=== PATIENT | female | born 1985 | race Caucasian/White ===

== ENCOUNTER 2020-04-14 17:21 | Emergency (ER) | payer MEDICAID ==
[~2020-04-14] VITALS: Ht 154.9 cm; Wt 59.0 kg
[2020-04-14 17:31] VITALS: BP 117/62
--- NOTE | 2020-04-14 17:45 | NUR ---
3 WKS IUP LMP 10/21/19 A 34F WITH 16WKS 3DAYS C/O SPOTTING, SCANT WHITE THIN DISCHARGE, MILD ITCHINESS, AND LEFT-SIDED LOWER ABDOMINAL PAIN WITHOUT RADIATION BUT MILD TENDERNESS TO PALPATION W/O REBOUND TENDERNESS, OR GUARDING. DENIES INJURY. HANY APPROX 09/26/2020, LMP 12/21/2019, A0.
--- NOTE | 2020-04-14 18:00 | NUR ---
urine collected and labs collected and sent to lab.
[2020-04-14 18:48] LABS: BASOPHILS % (AUTO) 0.5 % (0.0-2.0); EOSINOPHILS # (AUTO) 0.1 K/uL (0-0.4); EOSINOPHILS % (AUTO) 1.9 % (0.0-4.0); HEMATOCRIT 41.3 % (36-48); HEMOGLOBIN 14.1 g/dL (12.0-16.0); LYMPHOCYTES # (AUTO) 1.9 K/uL (2.5-16.5); LYMPHOCYTES % (AUTO) 26.8 % (20.5-51.1); MEAN CORPUSCULAR HEMOGLOBIN 32 pg (27-31); MEAN CORPUSCULAR HGB CONC 34 g/dL (33-37); MEAN CORPUSCULAR VOLUME 92.4 fL (80-94); MONOCYTES # (AUTO) 0.6 K/uL (0.8-1.0); MONOCYTES % (AUTO) 8.2 % (1.7-9.3); NEUTROPHILS # (AUTO) 4.4 K/uL (1.8-7.7); NEUTROPHILS % (AUTO) 62.6 % (42.2-75.2); PLATELET COUNT (AUTO) 181 K/uL (140-450); RED BLOOD CELL COUNT(AUTO) 4.47 MIL/uL (4.20-5.40); RED CELL DISTRIBUTION WIDTH 13.3 % (11.6-13.7); WHITE BLOOD COUNT (AUTO) 7.1 K/uL (4.8-10.8)
[2020-04-14 20:23] LABS: APPEARANCE,URINE CLEAR (CLEAR); BILIRUBIN,URINE NEGATIVE (NEGATIVE); BLOOD, URINE 3+ (NEGATIVE); COLOR,URINE YELLOW (YELLOW); LEUKOCYTE ESTERASE ,URINE NEGATIVE (NEGATIVE); NITRITE, URINE NEGATIVE (NEGATIVE); UGLUCOSE NEGATIVE (NEGATIVE)
[2020-04-14 20:29] LABS: RBC,URINE 11-20 (MOD) /HPF (0-5)
[2020-04-14 20:30] LABS: WBC,URINE 0-5 /HPF (0-5)
== END 2020-04-14 20:58 | disposition home or self-care (01) ==
LOC: MED 17:21
DX: O20.0 Threatened abortion (principal); Z3A.01 Less than 8 weeks gestation of pregnancy
CPT/HCPCS: 36415; 76805; 81001; 84702; 85025; 86900; 86901; 87086; 99284; Q0092